=== PATIENT | male | born 1990 | race Caucasian/White ===

== ENCOUNTER 2017-02-09 12:17 | Emergency (ER) | payer BC ==
[2017-02-09 13:08] VITALS: BP 177/84
--- NOTE | 2017-02-09 13:26 | UC ---
khushbu Arias Timothy, scribed for Virgilio Ag MD on 02/09/17 at 1319 . Back Pain HPI - History of Current Complaint Stated Complaint: BACK PAIN Time Seen by Provider: 02/09/17 13:17 Hx Obtained From: Patient Onset/Duration: Sudden Onset, Lasting Hours, Still Present Timing: Constant Severity Initially: Moderate Severity Currently: Moderate Pain Intensity: 8 Pain Scale Used: 0-10 Numeric Back Pain: Is Discrete @ - right low back Character: Spasmodic Aggravating: Movement Alleviating: Rest Associated Signs And Symptoms: Negative: Numbness, Tingling - Allergies/Home Medications Allergies/Adverse Reactions: Allergies Allergy/AdvReac Type Severity Reaction Status Date / Time Shellfish Allergy Allergy Severe Nausea And Verified 02/09/17 13:07 Vomiting Sulfamethoxazole Allergy Severe Hives Verified 02/09/17 13:07 w/Trimethoprim [From Bactrim] Amoxicillin Allergy Intermediate Hives Verified 02/09/17 13:07 Bacitracin Allergy Intermediate Hives Verified 02/09/17 13:07 Home Medications: Home Medications Cyanocobalamin [B12] 1,000 mcg PO 02/09/17 [History] PMH/Surg Hx/FS Hx/Imm Hx Cardiovascular History: Hypertension GI/ History: Kidney Stones Psychological History: Anxiety, Depression Other History Of: Negative For: HIV, Hepatitis B, Hepatitis C, Anticoagulant Therapy - Surgical History Surgical History: Yes Surgery Procedure, Year, and Place: Appendectomy within past 6 years [facility], Right foot surgery as a teenager - Family History Known Family History: Positive: None Negative: Cardiac Disease, Hypertension, Diabetes - Social History Alcohol Use: Occasionally Substance Use Type: None Smoking Status (MU): Light Every Day Tobacco Smoker Type: Cigarettes Amount Used/How Often: 5-6 CIG/DAY Length of Time of Smoking/Using Tobacco: 8 YEARS Have You Smoked in the Last Year: Yes Review of Systems Constitutional: Negative Skin: Negative Eyes: Negative ENT: Negative Respiratory: Negative Cardiovascular: Negative Gastrointestinal: Negative Genitourinary: Negative Motor: Negative Neurovascular: Negative Musculoskeletal: Other: - right low back pain with spasm Neurological: Negative Psychological: Negative All Other Systems Reviewed And Are Negative: Yes Physical Exam Triage Information Reviewed: Yes Vital Signs: Initial Vital Signs Temp 98.3 F 02/09/17 13:04 Pulse 108 02/09/17 13:04 Resp 20 02/09/17 13:04 BP 177/84 02/09/17 13:04 Pulse Ox 100 02/09/17 13:04 Vital Signs Reviewed: Yes - Additional Comments The patient is well-nourished in no acute distress and in no acute pain. The skin is warm and dry and skin color reflects adequate perfusion. HEENT: The head is normocephalic and atraumatic. The pupils are equal and reactive. The conjunctivae are clear and without drainage. Nares are patent and without drainage. Mouth reveals moist mucous membranes and the throat is without erythema and exudate. The external ears are intact. The ear canals are patent and without drainage. The tympanic membranes are intact. Neck is supple with full range of motion and non-tender. There are no carotid bruits. There is no neck vein distension. Respiratory: Chest is non-tender. Lungs are clear to auscultation and breath sounds are symmetrical and equal. Cardiovascular: Heart is regular rate and rhythm. There is no murmur or rub auscultated. There is no peripheral edema and pulses are symmetrical and equal. Abdomen: The abdomen is soft and non-tender. There are normal bowel sounds heard in all four quadrants and there is no organomegaly palpated. Musculoskeletal: Extremities are non-tender with full range of motion. There is good capillary refill. There is no peripheral edema or calf tenderness elicited. There is tenderness in the lumbar spine, particularly on the paravertebral right. No lumbosacral tenderness, There is pain with side- bending to the right or left. Neurological: Patient is alert and oriented to person, place and time. The patient has symmetrical motor strength in all four extremities. Cranial nerves are grossly intact. Deep tendon reflexes are symmetrical and equal in all four extremities. Psychiatric: The patient has an appropriate affect and does not exhibit any anxiety or depression. Back Pain Course/Dx - Course Course Of Treatment: Frankie Falk is a 27 yo male presenting to [facility] with 8/ 10 right side low back pain and spasm S/P moving this weekend. Pt medication list reviewed this visit. After clinical examination, he will be discharged home with acute lumbar sprain/strain with appropriate instructions and follow up. - Differential Dx/Diagnosis Differential Diagnosis/HQI/PQRI: Herniated Disc, Strain, Sprain Provider Diagnoses: acute lumbar strain/sprain Discharge - Discharge Plan Condition: Stable Disposition: HOME Prescriptions: Cyclobenzaprine TAB* [Flexeril 10 MG TAB*] 10 mg PO TID PRN #30 tab PRN Reason: muscle spasm Hydrocodone-Acetaminophen [Anatone 5-325 mg] 1 tab PO QID PRN #20 tab MDD 4 PRN Reason: pain Patient Education Materials: Low Back Strain (ED), Lower Back Exercises (ED) Referrals: Dawn Ramos MD [Primary Care Provider] - 2 Days Additional Instructions: Please follow up with your primary care physician regarding your visit to urgent care today. Return to urgent care or the emergency department with any new or recurring symptoms. The documentation as recorded by the khushbu graff Timothy accurately reflects the service I personally performed and the decisions made by , Virgilio Ag MD.
== END 2017-02-09 13:27 | disposition home or self-care (01) ==
LOC: UCEAST 12:17
DX: Z72.0 Tobacco use (principal); S33.5XXA Sprain of ligaments of lumbar spine, initial encounter
CPT/HCPCS: 99212; G0463

== ENCOUNTER 2017-11-11 20:08 | Observation (INO) | payer BC ==
[2017-11-11] MEDS ORDERED: Ketorolac INJ* 30 MG/ML 1 ML VIAL IV PUSH ONE (21:30)
[2017-11-11] MEDS ORDERED: Morphine VIAL* 4 MG/ML VIAL (1 ml vial) IV ONE ×3 (21:32→22:33)
[2017-11-11 21:37] LABS: ABS Basophils 0.1 10^3/ul (0-0.2); ABS Eosinophils 0.2 10^3/ul (0-0.6); ABS Lymphocytes 1.9 10^3/ul (1.0-4.8); ABS Neutrophils 7.6 10^3/ul (1.5-7.7); ABS Nucleated RBC 0 10^3/ul; Eosinophil % 1.4 % (0-6); Hematocrit 46 % (42-52); Hemoglobin 16.3 g/dl (14.0-18.0); Lymphocyte % 17.9 % (25-47); Mean Corpuscular HGB Conc 35 g/dl (31-36); Mean Corpuscular Hemoglobin 31 pg (27-31); Mean Corpuscular Volume 87 fL (80-94); Mean Platelet Volume 7.9 um3 (7.4-10.4); Nucleated Red Blood Cells % 0; Platelet Count 233 10^3/ul (150-450); Red Blood Count 5.31 10^6/ul (4.0-5.4); Red Cell Distribution Width 13 % (10.5-15); White Blood Count 10.7 10^3/ul (3.5-10.8)
[2017-11-11 21:47] LABS: EGFR Non-African American 64.1 (>60)
[2017-11-11] MEDS ORDERED: NS 0.9% 1000 ML* 1,000 ML IV ONE (22:33)
--- NOTE | 2017-11-11 23:02 | ED ---
GI/ HPI - HPI Summary HPI Summary: 27 year male presents with severe right lower quadrant pain past couple hours. He has history of uric acid stones and Dr monzon is his urologist. His pain is in his RLQ. He denies any chest pain or SOB. He jen any flank pain. He denies any testicular pain. Denies any penile discharge. Denies any fevers. He denies any dysuria. He denies any nausea vomiting. He had normal bowel movement for past 2 days. no diarrhea or constipation. He has had his appendix removed 10 years ago. Has history depression. He has not taking anything for his symptoms. He is in 10 out of 10 pain. - History of Current Complaint Chief Complaint: EDAbdPain Time Seen by Provider: 11/11/17 21:09 Stated Complaint: ABD PAIN Pain Intensity: 9 - Allergy/Home Medications Allergies/Adverse Reactions: Allergies Allergy/AdvReac Type Severity Reaction Status Date / Time amoxicillin Allergy Hives Verified 11/11/17 20:15 bacitracin Allergy Unknown Verified 11/11/17 20:15 Reaction Details shellfish derived Allergy Nausea And Verified 11/11/17 20:15 Vomiting sulfamethoxazole Allergy Hives Verified 11/11/17 20:15 [From Bactrim] trimethoprim [From Bactrim] Allergy Hives Verified 11/11/17 20:15 Home Medications: Home Medications Atomoxetine (NF) [Strattera (NF)] 40 mg PO DAILY 11/11/17 [History Confirmed 08/30] Cholecalciferol TAB* [Vitamin D TAB*] 1,000 unit PO DAILY 11/11/17 [History Confirmed 11/11/17] Cyanocobalamin TAB* [Vitamin B12 TAB*] 1,000 mcg PO DAILY 11/11/17 [History Confirmed 11/11/17] Dextroamphetamine/Amphetamine [Adderall Xr 10 mg Capsule] 50 mg PO DAILY [History Confirmed 11/11/17] Sertraline* [Zoloft*] 200 mg PO DAILY 11/11/17 [History Confirmed 11/11/17] PMH/Surg Hx/FS Hx/Imm Hx Endocrine/Hematology History: Denies: Hx Anticoagulant Therapy, Hx Diabetes, Hx Thyroid Disease Cardiovascular History: Reports: Hx Hypertension - HE states that he has slightly elevated blood pressure, but not on Rx Denies: Hx Congestive Heart Failure, Hx Deep Vein Thrombosis, Hx Myocardial Infarction, Hx Pacemaker/ICD Respiratory History: Denies: Hx Asthma, Hx Chronic Obstructive Pulmonary Disease (COPD), Hx Lung Cancer, Hx Pneumonia, Hx Pulmonary Embolism GI History: Denies: Hx Gall Bladder Disease, Hx Gastrointestinal Bleed, Hx Ulcer, Hx Urosepsis History: Reports: Hx Kidney Stones - He thinks he has one in each kidney. Denies: Hx Renal Disease Neurological History: Denies: Hx Dementia, Hx Migraine, Hx Seizures, Hx Transient Ischemic Attacks (TIA) Psychiatric History: Reports: Hx Anxiety, Hx Depression - Surgical History Surgery Procedure, Year, and Place: Appendectomy within past 6 years [facility], Right foot surgery as a teenager Infectious Disease History: No Infectious Disease History: Denies: Hx Clostridium Difficile, Hx Hepatitis, Hx Human Immunodeficiency Virus (HIV), Hx of Known/Suspected MRSA, Hx Shingles, Hx Tuberculosis, Hx Known/ Suspected VRE, Hx Known/Suspected VRSA, History Other Infectious Disease, Traveled Outside the [place] in Last 30 Days - Family History Known Family History: Positive: None Negative: Cardiac Disease, Hypertension, Diabetes - Social History Alcohol Use: Occasionally Substance Use Type: Reports: None Smoking Status (MU): Light Every Day Tobacco Smoker Type: Cigarettes Amount Used/How Often: 5-6 CIG/DAY Length of Time of Smoking/Using Tobacco: 8 YEARS Have You Smoked in the Last Year: Yes Review of Systems Negative: Fever Negative: Chest Pain Negative: Shortness Of Breath Positive: Abdominal Pain. Negative: Vomiting, Diarrhea, Nausea Negative: flank pain All Other Systems Reviewed And Are Negative: Yes Physical Exam Triage Information Reviewed: Yes Vital Signs On Initial Exam: Initial Vitals Temp Pulse Resp BP Pulse Ox 96.7 F 93 24 149/104 99 11/11/17 20:12 11/11/17 20:12 11/11/17 20:12 11/11/17 20:12 11/11/17 20:12 Vital Signs Reviewed: Yes Appearance: Positive: Pain Distress Skin: Positive: Warm, Dry Head/Face: Positive: Normal Head/Face Inspection Eyes: Positive: Normal, Conjunctiva Clear ENT: Positive: Pharynx normal Respiratory/Lung Sounds: Positive: Clear to Auscultation, Breath Sounds Present Cardiovascular: Positive: Normal, RRR Abdomen Description: Positive: Soft, Other: - tenderness RLQ. Negative: CVA Tenderness (R), CVA Tenderness (L) Bowel Sounds: Positive: Present Musculoskeletal: Positive: Normal Neurological: Positive: Normal Psychiatric: Positive: Normal Diagnostics - Vital Signs Vital Signs Temp Pulse Resp BP Pulse Ox 11/11/17 22:50 18 11/11/17 21:36 22 11/11/17 20:12 96.7 F 93 24 149/104 99 - Laboratory Lab Results: Lab Results 11/11/17 11/11/17 Range/Units 21:21 21:21 WBC 10.7 (3.5-10.8) 10^3/ul RBC 5.31 (4.0-5.4) 10^6/ul Hgb 16.3 (14.0-18.0) g/dl Hct 46 (42-52) % MCV 87 (80-94) fL MCH 31 (27-31) pg MCHC 35 (31-36) g/dl RDW 13 (10.5-15) % Plt Count 233 (150-450) 10^3/ul MPV 7.9 (7.4-10.4) um3 Neut % (Auto) 70.6 (38-83) % Lymph % (Auto) 17.9 L (25-47) % [place] % (Auto) 9.2 H (0-7) % Eos % (Auto) 1.4 (0-6) % Baso % (Auto) 0.9 (0-2) % Absolute Neuts (auto) 7.6 (1.5-7.7) 10^3/ul Absolute Lymphs (auto) 1.9 (1.0-4.8) 10^3/ul Absolute Monos (auto) 1.0 H (0-0.8) 10^3/ul Absolute Eos (auto) 0.2 (0-0.6) 10^3/ul Absolute Basos (auto) 0.1 (0-0.2) 10^3/ul Absolute Nucleated RBC 0 10^3/ul Nucleated RBC % 0 Sodium 142 (139-145) mmol/L Potassium 4.1 (3.5-5.0) mmol/L Chloride 104 (101-111) mmol/L Carbon Dioxide 28 (22-32) mmol/L Anion Gap 10 (2-11) mmol/L BUN 14 (6-24) mg/dL Creatinine 1.32 H (0.67-1.17) mg/dL Est GFR ( Amer) 82.5 (>60) Est GFR (Non-Af Amer) 64.1 (>60) BUN/Creatinine Ratio 10.6 (8-20) Glucose 89 (70-100) mg/dL Calcium 10.1 (8.6-10.3) mg/dL Total Bilirubin 0.70 (0.2-1.0) mg/dL AST 44 H (13-39) U/L ALT 27 (7-52) U/L Alkaline Phosphatase 59 (34-104) U/L C-Reactive Protein 3.71 (< 5.00) mg/L Total Protein 7.7 (6.4-8.9) g/dL Albumin 4.7 (3.2-5.2) g/dL Globulin 3.0 (2-4) g/dL Albumin/Globulin Ratio 1.6 (1-3) Lipase 47 (11.0-82.0) U/L Result Diagrams: 11/11/17 21:21 11/11/17 21:21 Lab Statement: Any lab studies that have been ordered have been reviewed, and results considered in the medical decision making process. - CT abd CT Interpretation: Positive (See Comments) - Right perinephritic edema, mild right hydronephrosis and dilation of right extrarenal pelvis due to 1 cm obstructing calculi at the uteropelvic junction. Additional small bilateral anterior intrarenal noted. CT Interpretation Completed By: Radiologist - Ultrasound No standard instances Ultrasound Interpretation: No Acute Changes Ultrasound Interpretation Completed By: Radiologist Re-Evaluation - Re-Evaluation First Eval Re-Evaluation Time: 23:25 Change: Improved Comment: pain is still 8 out of 10 GIGU Course/Dx - Course Course Of Treatment: 27 year male presents with severe right lower quadrant pain past couple hours. He has history of uric acid stones and Dr monzon is his urologist. His pain is in his RLQ. He denies any chest pain. Denies any penile discharge. Denies any fevers. He denies any dysuria. He denies any nausea vomiting. He had normal bowel movement for past 2 days. He has had his appendix removed 10 years ago. Has history depression. He has not taking anything for her symptoms. He is in 10 out of 10 pain. On exam lungs CVA tenderness right. Patient is writhing in pain. Tenderness right lower quadrant. wbc cell count normal. Creatinine slightly elevated. CT shows a 1 cm at uteropelvic junction. spoke with dr glover said if cant get pain under control admit and will stent in morning. discussed with dr cisse who agrees to admit. - Diagnoses Differential Diagnoses - Male: Pyelonephritis, Testicular Torsion, Ureteral Calculi Provider Diagnoses: Urethral stone Discharge - Sign-Out/Discharge Documenting (check all that apply): Discharge/Admit/Transfer - Discharge Plan Condition: Good Disposition: ADMITTED TO [facility] Referrals: Dawn Ramos MD [Primary Care Provider] - - Billing Disposition and Condition Condition: GOOD Disposition: [facility] [place]
[2017-11-11] MEDS ORDERED: HYDROmorphone INJ* 2 MG/ML CARPUJECT SYRINGE IV SLOW PU ONE (23:14)
[2017-11-12] MEDS ORDERED: NS 0.9% 1000 ML* 1,000 ML IV ONE (00:37)
[2017-11-12] MEDS ORDERED: Acetaminophen TAB* 325 MG PO PRN (00:37)
[2017-11-12] MEDS ORDERED: Ondansetron INJ* 2 MG/ML VIAL IV PRN (00:37)
[2017-11-12] MEDS ORDERED: HYDROmorphone INJ* 2 MG/ML CARPUJECT SYRINGE IV SLOW PU PRN (00:37)
[2017-11-12 02:05] LABS: Urine Appearance Clear; Urine Blood 3+ (Negative); Urine Color Yellow; Urine Ketones Negative (Negative); Urine Protein 2+(100 mg/dL) (Negative); Urine Specific Gravity 1.021 (1.010-1.030); Urine Urobilinogen Negative (Negative)
[2017-11-12] MEDS: NS 0.9% 1000 ML* 1,000 ML IV SCH ×2 (02:17→10:27)
[2017-11-12 05:36] LABS: ABS Basophils 0 10^3/ul (0-0.2); ABS Eosinophils 0.1 10^3/ul (0-0.6); ABS Neutrophils 5.6 10^3/ul (1.5-7.7); ABS Nucleated RBC 0 10^3/ul; Eosinophil % 1.2 % (0-6); Hematocrit 40 % (42-52); Hemoglobin 14.1 g/dl (14.0-18.0); Lymphocyte % 22.4 % (25-47); Mean Corpuscular HGB Conc 35 g/dl (31-36); Mean Corpuscular Hemoglobin 30 pg (27-31); Mean Corpuscular Volume 86 fL (80-94); Mean Platelet Volume 7.5 um3 (7.4-10.4); Nucleated Red Blood Cells % 0.1; Platelet Count 175 10^3/ul (150-450); Red Blood Count 4.65 10^6/ul (4.0-5.4); Red Cell Distribution Width 13 % (10.5-15); White Blood Count 8.7 10^3/ul (3.5-10.8)
[2017-11-12 05:44] LABS: INR 1.02 (0.77-1.02)
[2017-11-12] MEDS ORDERED: Ketorolac INJ* 30 MG/ML 1 ML VIAL IV PUSH ONE (05:45)
[2017-11-12 05:57] LABS: EGFR Non-African American 65.8 (>60)
[2017-11-12] MEDS ORDERED: Heparin VIAL(*) 5000 UNITS/ML VIAL (FIVE THOUSAND) SUBCUT SCH (06:00)
[2017-11-12] MEDS ORDERED: HYDROmorphone INJ* 2 MG/ML CARPUJECT SYRINGE ONE (06:53)
[2017-11-12] MEDS ORDERED: HYDROmorphone INJ* 2 MG/ML CARPUJECT SYRINGE IV ONE (07:00)
--- NOTE | 2017-11-12 07:09 | HP ---
CC: Dr. Ramos; Dr. De La Torre * HISTORY AND PHYSICAL: DATE OF ADMISSION: 11/12/17 PRIMARY CARE PROVIDER: Dr. Ramos. ATTENDING PHYSICIAN WHILE IN THE HOSPITAL: Maren Carvajal DO * (report dictated by Arie Luna NP). CHIEF COMPLAINT: Abdominal pain. HISTORY OF PRESENT ILLNESS: Mr. Falk is a 27-year-old male patient who has a history of ADHD, depression, and kidney stones; however, he has never had issues with passing one. He has a history of uric stones that he follows with Dr. Miller for. He comes into our ER today stating that he this evening started having some right lower quadrant pain mostly in the front. He stated that the pain just got progressively worse. He was at a meeting, the pain just was unbearable, he came into the ER. He denied any fevers or chills. No nausea, no vomiting. He denied having any dysuria recently. He says that he just could not get comfortable. It was a stabbing, sharp, unrelenting pain that was doubling him over. It was agonizing. He came into our ER, ultimately was evaluated and found to have nephrolithiasis in the right kidney and the right ureter. He denied again having any testicular pain. He denied having any chest pain or shortness of breath. No recent URI symptoms. No fevers or chills. He said prior to this he had been feeling well. He was evaluated, was noted to have a 1 cm stone at the UPJ and we were asked to evaluate for admission. PAST MEDICAL HISTORY: Significant for: 1. ADHD. 2. Depression. 3. Nephrolithiasis. PAST SURGICAL HISTORY: 1. He has had a cystoscopy x2. 2. Appendectomy. MEDICATIONS: Home medications include: 1. B12, 1000 mcg p.o. daily. 2. Vitamin D 1000 units p.o. daily. 3. Zoloft 200 mg daily. 4. Adderall 50 mg p.o. daily. 5. Strattera 40 mg p.o. daily. ALLERGIES TO MEDICATIONS: Include AMOXICILLIN, BACITRACIN, SHELLFISH, and BACTRIM. FAMILY HISTORY: His mother is healthy, father has a history of hypertension and diabetes. SOCIAL HISTORY: He is a half a pack a day smoker for about 10 years. He does not drink alcohol. Surrogate decision maker is his mother. REVIEW OF SYSTEMS: There is no documented fever. Denies having any significant weight change. No double vision, no ear discharge. No rhinorrhea. No sore throat. No thyroid enlargement. Denies having any chest pain. There is no orthopnea, no nocturnal dyspnea. There was no abdominal pain. No nausea , no vomiting, no dysuria, no frequency, no seizure, no loss of consciousness, no pruritus, and no skin ulcerations. Review of 14 systems completed and all others negative. PHYSICAL EXAMINATION GENERAL: At this time, Mr. Falk is a 27-year-old male patient, he is sitting in the ED stretcher, he does not appear to be in any acute distress. VITAL SIGNS: Blood pressure 148/89, pulse 91, respirations 16, O2 sat 97%, and temperature 98.3. HEENT: Head atraumatic and normocephalic. Eyes: EOMs intact. Sclerae anicteric and not pale. Throat: Oral mucosa appears to be moist. No oropharyngeal erythema. NECK: Supple. LUNGS: Clear to auscultation bilaterally. No wheezes, rales, or rhonchi. HEART: Sounds S1 and S2. Regular rate and rhythm. No murmurs, rubs, or gallops. ABDOMEN: Soft, flat, nontender. No CVA tenderness. Bowel sounds are present. EXTREMITIES: Pulses are 2+ throughout. Moving all 4 extremities with 5/5 strength. NEUROLOGIC: The patient is awake, alert, and oriented x3. Tongue midline. Staff Scientist are equal. No gross focal deficits. SKIN: Grossly intact. LABORATORY DATA: WBC 10.7, RBC of 5.21, hemoglobin 16.2, hematocrit 46, platelet count 233,000. Sodium of 142, potassium 4.1, chloride 104, bicarb 28, BUN 14, creatinine 1.32, glucose 89, calcium 10.1, total bili 0.7, AST 44, ALT 27, alk phos 59, CRP 3.7, albumin 4.7, lipase normal. He did have a testicular ultrasound. Findings: The testicles appear to be normal without testicular mass. There is a 2 mm and 3 mm anterior left scrotal cyst, likely tunica albuginea cyst. appropriate arterial and/or venous waveforms are noted on both testes making a torsion unlikely. He did have a CT of the abdomen and pelvis. Findings: Liver, gallbladder, pancreas, and adrenal glands are grossly unremarkable. Borderline mild splenomegaly. Right perinephritic edema, mild right hydrodilation of the right extrarenal pelvis due to 1 mm obstructing calculus at the UPJ. Additional small bilateral intrarenal calculi. No AAA. No evidence of diverticulitis, small bowel obstruction, free fluid or free air. Old medical records were reviewed. ASSESSMENT AND PLAN: Mr. Falk is a 27-year-old male patient coming into the ED today with complaints of abdominal pain. He was found to have a 1 mm stone at the right UPJ. He will be admitted under observation status for: 1. Nephrolithiasis with UPJ stone and mild hydronephrosis with associated obstructive uropathy. At this point, Dr. De La Torre has been contacted by the ED. Plan will be for ureteral stenting tomorrow. He will be n.p.o. starting now. I have ordered normal saline at 125 an hour. I am trying to get a urine on the patient. 2. Depression. Continue meds as prescribed. 3. Attention deficit hyperactivity disorder. Continue his current medical regimen. 4. DVT prophylaxis. SCDs have been ordered. 5. Code status. Full code. 6. Fluids, electrolytes, and nutrition. He is n.p.o. pending the OR today. TIME SPENT: Time spent on admission 60 minutes, greater than half the time spent [id number] with the patient obtaining my history and physical, other half of the time spent going over the plan of care with the patient, implementing the plan of care. I discussed the plan of care with my attending, Dr. Carvajal, she is in agreement. ARIE LUNA, JONELLE [id number]/CPS #: [id number] [place]
--- NOTE | 2017-11-12 07:28 | RAD ---
INDICATION: Right lower quadrant pain. COMPARISON: There are no prior studies available for comparison. TECHNIQUE: Multiple real-time images of the testicles were obtained including color Doppler images and Doppler tracings. FINDINGS: The testicles are normal in size, shape and echogenicity. The right testicle measured 3.8 x 1.7 x 3.2 cm and the left testicle measured 4.4 x 1.8 x 3.4 cm. No intratesticular mass is seen. There are small cysts present peripherally within the left testicle measuring 3 x 1 x 3 and 2 x 1 x 2 mm each most consistent with tunica albuginea cysts. There is symmetric vascular flow within both testicles. The epididymides appear to be within normal limits. IMPRESSION: 1. NO EVIDENCE FOR TORSION OR EPIDIDYMITIS. 2. FINDINGS MOST CONSISTENT WITH SMALL LEFT TUNICA ALBUGINEA CYSTS.
--- NOTE | 2017-11-12 07:39 | RAD ---
INDICATION: Right lower quadrant pain, history of appendectomy. COMPARISON: Comparison is made with a prior CT of the abdomen and pelvis from January 11, 2016. TECHNIQUE: A CT scan of the abdomen and pelvis was performed without intravenous or oral contrast. Contiguous axial sections were obtained from the lung bases through the symphysis pubis. Images were reconstructed in the coronal and sagittal planes. FINDINGS: The lung bases are clear. No pleural effusion is present. The liver is normal in size without significant focal abnormality on this noncontrast study. No calcified gallstones are seen. The pancreas appears to be within normal limits. The spleen is borderline enlarged spanning 13 cm in craniocaudad dimension. The adrenal glands appear to be within normal limits. There are several small bilateral renal calculi. In addition there is a large calculus in the right renal pelvis measuring 1.1 x 0.8 cm in size. This is currently not lodged at the ureteropelvic junction There is dilatation of the renal pelvis and calyces consistent with mild to moderate hydronephrosis. There is mild perinephric stranding and stranding around the right renal pelvis and proximal ureter. No additional ureteral or bladder calculi are seen. The aorta is normal in caliber without significant calcific plaque. No significant enlarged retroperitoneal lymph nodes are seen. There are surgical sutures adjacent to the cecum. There is a small periumbilical hernia containing fat. No free intraperitoneal air or fluid is seen. No significant focal osseous abnormality is seen. IMPRESSION: 1. MILD TO MODERATE RIGHT HYDRONEPHROSIS WHICH APPEARS TO BE SECONDARY TO AN INTERMITTENT OBSTRUCTING CALCULUS PRESENT IN THE RENAL PELVIS MEASURING UP TO 1.1 CM IN SIZE. 2. THERE ARE ADDITIONAL SMALL BILATERAL RENAL CALCULI. 3. BORDERLINE SPLENOMEGALY. 4. STATUS POST APPENDECTOMY.
[2017-11-12] MEDS ORDERED: CMCS:Atomoxetine (NF) 40 MG CAP PO SCH (09:00)
[2017-11-12] MEDS ORDERED: Amphetamine/Dextroamph ER(NF) 10 MG CAP.ER PO SCH (09:00)
[2017-11-12] MEDS ORDERED: Sertraline* 100 MG TAB PO SCH (09:00)
[2017-11-12] MEDS: HYDROmorphone INJ* 2 MG/ML CARPUJECT SYRINGE IV SLOW PU PRN ×2 (11:39→15:40)
--- NOTE | 2017-11-12 13:52 | RAD ---
Indication: Urolithiasis. Comparison: November 11, 2017 CT. Technique: Supine view of the abdomen. Report: Bowel anastomosis staple line at the RIGHT abdomen. Unremarkable bowel gas pattern. Moderate stool in the colon without significant rectal distension. 1.1 cm maximum dimension stone at the level of the RIGHT renal pelvis. 0.3 cm calyceal stone at the level of the lower pole of the LEFT kidney . Smaller bilateral stones on CT are not conspicuous on radiographs likely on a technical basis. Pelvic phleboliths and probable RIGHT seminal vesicle calcification based on correlation with CT. Unremarkable soft tissue contours. IMPRESSION: Bilateral urolithiasis as described.
[2017-11-12] MEDS ORDERED: Iohexol 180 (CONTRAST) 10 ML SDV IV ONE (16:13)
[2017-11-12] MEDS ORDERED: oxyCODONE/Acetamin 5/325 MG* TAB PO PRN (16:18)
[2017-11-12] MEDS ORDERED: Naloxone* 0.4 MG/ML 1 ML VIAL IV PRN (16:18)
[2017-11-12] MEDS ORDERED: HYDROcodone/ACETAMIN 5-325 MG* 1 TAB PO PRN (16:18)
[2017-11-12] MEDS ORDERED: fentaNYL* 50 MCG/ML 2 ML VIAL (100 MCG VIAL) IV PRN (16:18)
[2017-11-12] MEDS ORDERED: DiMENhydriNATE IV* 50 MG/ML VIAL IV PUSH PRN (16:18)
[2017-11-12] MEDS ORDERED: fentaNYL* 50 MCG/ML 2 ML VIAL (100 MCG VIAL) ONE (16:33)
[2017-11-12] MEDS ORDERED: Propofol* 10 MG/ML 20 ML BTL IV PUSH ONE (16:33)
[2017-11-12] MEDS ORDERED: Lidocaine 2% PF * 5 ML VIAL ONE (16:33)
[2017-11-12] MEDS ORDERED: Midazolam* 1 MG/ML 2 ML VIAL (2 MG) ONE (16:33)
[2017-11-12] MEDS ORDERED: Gentamicin ADULT (*) 40 MG/ML VIAL ONE (17:15)
[2017-11-12] MEDS ORDERED: Levofloxacin 750 MG IVPREMIX(* 750 MG/150 ML BAG ONE (17:31)
--- NOTE | 2017-11-12 17:47 | RAD ---
INDICATION: Right renal calculus COMPARISONS: CT dated November 11, 2017 TECHNIQUE: Fluoroscopy was provided for a retrograde pyelogram and stent placement. Total fluoroscopy time is: 12 seconds FINDINGS: Spot images demonstrate contrast within the right renal collecting system. A right ureteral stent is noted. IMPRESSION: FLUOROSCOPY WAS PROVIDED FOR A RETROGRADE PYELOGRAM AND STENT PLACEMENT CPT II Codes: G9500
[2017-11-12 19:00] VITALS: BP 144/53
--- NOTE | 2017-11-13 10:35 | OP ---
CC: Dr. Dawn Ramos; Dr. Maren Carvajal * DATE OF OPERATION: 11/12/17 - ROOM #341 DATE OF : 86 SURGEON: Vinicio Miller MD ANESTHESIOLOGIST: Lisbet Quinteros MD. ANESTHESIA: General. PRE-OP DIAGNOSES: 1. Right hydronephrosis. 2. Large obstructing calculus, right ureteropelvic junction. POST-OP DIAGNOSES: 1. Right hydronephrosis. 2. Large obstructing calculus, right ureteropelvic junction. OPERATIVE PROCEDURE: Cystoscopy, right retrograde pyelogram, right ureteral calculus manipulation, and right stent insertion. INDICATIONS: Frankie Falk is a 27-year-old young man with history of renal calculi. He had presented to the emergency room with right flank pain and was noted to have approximately 1- to 1.1-cm calculus obstructing at the right ureteropelvic junction. He is being brought in for urgent right stent insertion to be followed in the near future by shock wave lithotripsy. COMPLICATIONS: None. STENT USED: 6-Bangladeshi stent, right ureter. POSTOPERATIVE CONDITION: Stable. OPERATIVE FINDINGS: High-grade obstruction secondary to large calculus at right ureteropelvic junction. DESCRIPTION OF PROCEDURE: After induction of general anesthesia, the patient was placed in dorsal lithotomy position. Sequential compression devices were in place and functioning. Initial cystoscopy revealed a normal-appearing urethra. The bladder was examined and appeared unremarkable. Clear urine was seen effluxing from the left orifice. I did not visualize any efflux from the right orifice suggesting a high-grade obstruction. Guidewire was introduced into the right ureter. Retrograde pyelogram revealed a large radiopaque calculus at the area of the ureteropelvic junction on fluoroscopy and initially there was no progression of contrast beyond the calculus. A guidewire and an open-ended catheter were advanced to the level of the calculus and it was carefully manipulated proximally. Once this was done, the open-ended could be advanced into the right renal pelvis. Retrograde pyelogram revealed fullness of the right collecting system and there was significant drainage of hydronephrotic drip from the right kidney. A 6-Bangladeshi stent was introduced and positioned under fluoroscopy with good proximal and distal positioning obtained. The patient tolerated the procedure satisfactorily and was transferred back to the recovery area in stable condition. At the end of the procedure, fluoroscopy revealed the calculus to be located in the right renal pelvis and he will be scheduled for shock wave lithotripsy in the near future. [id number]/[facility] #: [id number] BARRON
--- NOTE | 2017-11-14 11:50 | DS ---
CC: Dr. Ramos; Dr. Vinicio Miller MD * DISCHARGE SUMMARY: DATE OF ADMISSION: 11/12/17 DATE OF DISCHARGE: 11/12/17 PRIMARY CARE PROVIDER: Dr. Ramos. MY ATTENDING WHILE IN THE HOSPITAL: Nicolas Vides MD * (DICTATED BY KAILYN APARICIO) CONSULTING UROLOGIST: Dr. Vinicio Miller. PRIMARY DISCHARGE DIAGNOSIS: Nephrolithiasis secondary to status post stenting. SECONDARY DISCHARGE DIAGNOSES: 1. Attention deficit hyperactivity disorder. 2. Depression. STUDIES DONE WHILE IN THE HOSPITAL: Abdomen and pelvis CT from 11/11/17 read as [id number] right hydronephrosis, which appears to be secondary to intermittent obstructing calculus present in the renal pelvis, measuring up to 1.1 cm in size. There are additional small bilateral renal calculi, borderline splenomegaly, status post appendectomy. Testicular ultrasound read as no evidence for torsion of the epididymis or epididymitis. Findings most consistent with small left tunica albuginea cysts. Abdomen x-ray from 11/12/17 , read as urolithiasis as described above. Retrograde pyelogram shows right ureteral stent. MEDICATIONS: At discharge: 1. Vitamin B12 1000 mcg p.o. q.a.m. 2. Vitamin D 1000 units p.o. q.a.m. 3. Sertraline 200 mg p.o. q.a.m. 4. Adderall 15 mg p.o. q.a.m. 5. Strattera 40 mg p.o. q.a.m. 6. Tylenol 650 mg p.o. q.4 hours as needed for pain. HOSPITAL COURSE: This is a brief summary of the patient's presentation. For more detail, please see the history and physical from Arie Luna NP, on 09/27. In brief, the patient is a 27-year-old male with past medical history significant for the above, who presents with pain in his right lower quadrant anteriorly. It got progressively worse, became unbearable without any associated symptoms or recent illnesses. The patient never had issues of passing a kidney stone before. The patient was admitted to the hospital for pain control. The patient had a creatinine of 1.32 on admission, likely representing an obstruction. The patient also had an AST of 44. Urinalysis showed 3+ blood, 2+ protein, trace leukocyte esterase, 1+ white blood cells, and positive rbc's. On repeat, showed a creatinine of 1.29. The patient had no issues throughout the day. His pain is well controlled with Dilaudid and he was taken in the evening for ureteral stenting with Dr. Vinicio Miller, which was performed without complication relieving the obstruction on his ureter. The patient was stable in the postanesthesia care unit and was stable for discharge home. The patient was instructed to follow up for lithotripsy on Thursday as discussed with Dr. Miller and to avoid any blood thinners until then. PHYSICAL EXAMINATION ON THE DAY OF DISCHARGE: General: The patient is a 27- year- old male who appears stated age, sitting comfortably in bed, in no acute distress. Vital signs at the time of discharge: Temperature 97.3, pulse rate 85 , respiratory rate 15, oxygen saturation 99% on room air, blood pressure 144/ 99. HEENT: Head normocephalic, atraumatic. Sclerae are anicteric. No conjunctival injection. Nasal mucosa moist. Oral mucosa moist. No pharyngeal erythema, discharge or exudate. Neck: Supple, nontender. No lymphadenopathy. No carotid bruit auscultated. Cardiac: Regular rate and rhythm. No clicks, murmurs, gallops or rubs. Pulses are 2+ in bilateral dorsal pedis, posterior tibialis, and radial areas. Respiratory: Clear to auscultation bilaterally. No wheezes, rales or rhonchi. Good air exchange bilaterally. Abdomen: Soft. Tenderness to palpation in the lower quadrant. No guarding or abnormalities. No hepatosplenomegaly. Genitourinary: No suprapubic or CVA tenderness. Psychiatric: Pleasant and cooperative. DISCHARGE PLAN: The patient will be discharged to home. The patient will follow up on 11/16/17, for lithotripsy as discussed with Dr. Miller. The patient will avoid blood thinners to that point. He can take Tylenol for pain control. The patient is having no pain at this time. I have discussed with the patient that if these are uric acid stones as believed, now that he is having more issues with them, that it would be indicated to discuss prophylactic therapy with his urologist. The patient should return to hospital for alarming symptoms such as severe fevers, chest pain, shortness of breath, inability to pass urine. The patient should engage in activity as tolerated and have a regular unrestricted diet. TIME SPENT: Approximately 60 minutes were spent on the discharge, 30 of which were spent [id number] with the patient obtaining history and physical and discussing treatment plan. KAILYN APARICIO [id number]/[facility] #: [id number] [place]
== END 2017-11-12 19:17 | disposition home or self-care (01) ==
LOC: ED 20:08 → SSU 11-12 00:35
PROVIDERS: ADMIT Hospitalist; ATTEND Student in an Organized Health Care Education/Training Program
PROC: BT1DZZZ Fluoroscopy of Right Kidney, Ureter and Bladder (ICD-10-PCS; 2017-11-12)
PROC: 0WHR8YZ Insertion of Other Device into Genitourinary Tract, Via Natural or Artificial Opening Endoscopic (ICD-10-PCS; 2017-11-12)
PROC: 0T768DZ Dilation of Right Ureter with Intraluminal Device, Via Natural or Artificial Opening Endoscopic (ICD-10-PCS; principal; 2017-11-12 15:00)
DX: N13.2 Hydronephrosis with renal and ureteral calculous obstruction (principal); F32.9 Major depressive disorder, single episode, unspecified; F90.9 Attention-deficit hyperactivity disorder, unspecified type; F17.210 Nicotine dependence, cigarettes, uncomplicated; Z88.2 Allergy status to sulfonamides; Z88.8 Allergy status to other drugs, medicaments and biological substances; Z79.899 Other long term (current) drug therapy; I10 Essential (primary) hypertension
CPT/HCPCS: 36415; 74018; 74176; 74420; 76870; 80048; 80053; 81003; 81015; 83690; 85025; 85610; 85730; 86140; 87086; 96374; 96375; 96376; 99285; 99406; A9270-GY; C1876; G0378; J1170; J1580; J1885; J2250; J2270; J2704; J3010

== ENCOUNTER 2017-11-14 02:39 | Emergency (ER) | payer BC ==
[2017-11-14] MEDS ORDERED: Metoclopramide IV* 5 MG/ML 2 ML VIAL IV ONE (03:12)
[2017-11-14] MEDS ORDERED: HYDROmorphone INJ* 2 MG/ML CARPUJECT SYRINGE IV SLOW PU ONE (03:12)
[2017-11-14] MEDS ORDERED: NS 0.9% 1000 ML* 1,000 ML IV ONE (03:12)
[2017-11-14 03:33] LABS: ABS Basophils 0.1 10^3/ul (0-0.2); ABS Eosinophils 0.2 10^3/ul (0-0.6); ABS Lymphocytes 1.9 10^3/ul (1.0-4.8); ABS Monocytes 0.8 10^3/ul (0-0.8); ABS Neutrophils 4.2 10^3/ul (1.5-7.7); ABS Nucleated RBC 0 10^3/ul; Eosinophil % 3.1 % (0-6); Hematocrit 39 % (42-52); Hemoglobin 13.5 g/dl (14.0-18.0); Lymphocyte % 26.6 % (25-47); Mean Corpuscular HGB Conc 35 g/dl (31-36); Mean Corpuscular Hemoglobin 30 pg (27-31); Mean Corpuscular Volume 87 fL (80-94); Mean Platelet Volume 7.5 um3 (7.4-10.4); Nucleated Red Blood Cells % 0.1; Platelet Count 177 10^3/ul (150-450); Red Blood Count 4.48 10^6/ul (4.0-5.4); Red Cell Distribution Width 13 % (10.5-15); White Blood Count 7.3 10^3/ul (3.5-10.8)
[2017-11-14 03:50] LABS: EGFR Non-African American 78.3 (>60)
[2017-11-14 05:27] LABS: Urine Appearance Cloudy; Urine Blood 2+ (Negative); Urine Ketones Negative (Negative); Urine Protein 2+(100 mg/dL) (Negative); Urine Specific Gravity 1.012 (1.010-1.030); Urine Urobilinogen Negative (Negative)
[2017-11-14] MEDS ORDERED: Levofloxacin TAB* 500 MG PO ONE (05:39)
[2017-11-14 06:04] VITALS: BP 120/59
[2017-11-14 06:10] LABS: Urine Color Red
--- NOTE | 2017-11-14 06:19 | ED ---
Mert Arias Nikita, scribed for Karine Del Valle MD on 11/14/17 at 0333 . Abdominal Pain/Male - HPI Summary HPI Summary: This patient is a 27 year old M presenting to ED with a chief complaint of RLQ pain since 1 hour ago. The patient had a stent put in on 11/12/17 for kidney stone. The patient rates the pain 10/10 in severity. Symptoms aggravated by nothing. Symptoms alleviated slightly by Percocet at 0212. Patient reports hematuria. Patient denies testicular pain and fever. - History of Current Complaint Chief Complaint: EDAbdPain Stated Complaint: ABD PAIN Time Seen by Provider: 11/14/17 03:06 Hx Obtained From: Patient Onset/Duration: Sudden Onset, Lasting Hours, Still Present Timing: Constant, Lasting Hours Severity Initially: Severe Severity Currently: Severe Pain Intensity: 10 Pain Scale Used: 0-10 Numeric Location: Discrete At: RLQ Aggravating Factor(s): Nothing Alleviating Factor(s): Other: - alleviated slightly by 2 percocet Associated Signs And Symptoms: Positive: Other - Patient reports hematuria. Patient denies testicular pain and fever. - Allergies/Home Medications Allergies/Adverse Reactions: Allergies Allergy/AdvReac Type Severity Reaction Status Date / Time amoxicillin Allergy Hives Verified 11/14/17 03:45 bacitracin Allergy Unknown Verified 11/14/17 03:45 Reaction Details shellfish derived Allergy Nausea And Verified 11/14/17 03:45 Vomiting sulfamethoxazole Allergy Hives Verified 11/14/17 03:45 [From Bactrim] trimethoprim [From Bactrim] Allergy Hives Verified 11/14/17 03:45 Home Medications: Home Medications Simethicone [Gas Relief] 160 mg PO BID PRN 11/14/17 [History Confirmed 11/14/17] PMH/Surg Hx/FS Hx/Imm Hx Endocrine/Hematology History: Denies: Hx Anticoagulant Therapy, Hx Diabetes, Hx Thyroid Disease Cardiovascular History: Reports: Hx Hypertension - HE states that he has slightly elevated blood pressure, but not on Rx Denies: Hx Congestive Heart Failure, Hx Deep Vein Thrombosis, Hx Myocardial Infarction, Hx Pacemaker/ICD Respiratory History: Denies: Hx Asthma, Hx Chronic Obstructive Pulmonary Disease (COPD), Hx Lung Cancer, Hx Pneumonia, Hx Pulmonary Embolism GI History: Denies: Hx Gall Bladder Disease, Hx Gastrointestinal Bleed, Hx Ulcer, Hx Urosepsis History: Reports: Hx Kidney Stones - He thinks he has one in each kidney. Denies: Hx Renal Disease Sensory History: Reports: Hx Contacts or Glasses Denies: Hx Hearing Aid Opthamlomology History: Reports: Hx Contacts or Glasses Neurological History: Denies: Hx Dementia, Hx Migraine, Hx Seizures, Hx Transient Ischemic Attacks (TIA) Psychiatric History: Reports: Hx Anxiety, Hx Depression, Other Psychiatric Issues/Disorders - Dysthymia - Surgical History Surgery Procedure, Year, and Place: Appendectomy within past 6 years [facility], Right foot surgery as a teenager/renal stent placement Hx Anesthesia Reactions: No Infectious Disease History: No Infectious Disease History: Denies: Hx Clostridium Difficile, Hx Hepatitis, Hx Human Immunodeficiency Virus (HIV), Hx of Known/Suspected MRSA, Hx Shingles, Hx Tuberculosis, Hx Known/ Suspected VRE, Hx Known/Suspected VRSA, History Other Infectious Disease, Traveled Outside the [place] in Last 30 Days - Family History Known Family History: Negative: Cardiac Disease, Hypertension, Diabetes - Social History Alcohol Use: Occasionally Substance Use Type: Reports: None Substance Use Comment - Amount & Last Used: 8 years ago--marijuana Smoking Status (MU): Light Every Day Tobacco Smoker Type: Cigarettes Amount Used/How Often: 5-6 CIG/DAY Length of Time of Smoking/Using Tobacco: 8 YEARS Have You Smoked in the Last Year: Yes Review of Systems Negative: Fever Positive: hematuria, other - denies testicular pain All Other Systems Reviewed And Are Negative: Yes Physical Exam - Summary Physical Exam Summary: VITAL SIGNS: Reviewed. GENERAL: ~Patient is a well-developed and nourished MALE who is lying comfortable in the stretcher. Patient is not in any acute respiratory distress. HEAD AND FACE: No signs of trauma. No ecchymosis, hematomas or skull depressions. No sinus tenderness. EYES: PERRLA, EOMI x 2, No injected conjunctiva, no nystagmus. EARS: Hearing grossly intact. Ear canals and tympanic membranes are within normal limits. MOUTH: Oropharynx within normal limits. NECK: Supple, trachea is midline, no adenopathy, no JVD, no carotid bruit, no c- spine tenderness, neck with full ROM. CHEST: Symmetric, no tenderness at palpation LUNGS: Clear to auscultation bilaterally. No wheezing or crackles. CVS: Regular rate and rhythm, S1 and S2 present, no murmurs or gallops appreciated. ABDOMEN: Soft, non-tender. No signs of distention. No rebound, no guarding, and no masses palpated. Bowel sounds are normal. EXTREMITIES: FROM in all major joints, no edema, no cyanosis or clubbing. NEURO: Alert and oriented x 3. No acute neurological deficits. Speech is normal and follows commands. SKIN: Dry and warm Triage Information Reviewed: Yes Vital Signs On Initial Exam: Initial Vitals Temp Pulse Resp BP Pulse Ox 97.6 F 71 16 170/104 99 11/14/17 02:41 11/14/17 02:41 11/14/17 02:41 11/14/17 02:41 11/14/17 02:41 Vital Signs Reviewed: Yes Diagnostics - Vital Signs Vital Signs Temp Pulse Resp BP Pulse Ox 11/14/17 02:41 97.6 F 71 16 170/104 99 - Laboratory Result Diagrams: 11/14/17 03:27 11/14/17 03:27 Lab Statement: Any lab studies that have been ordered have been reviewed, and results considered in the medical decision making process. - CT CT abd/pel CT Interpretation Completed By: Radiologist - Mild persistent hydronephrosis is diminished from prior study following nephroureteral stent placement. ED physician has reviewed this imaging report. Re-Evaluation - Re-Evaluation First Eval Re-Evaluation Time: 05:41 Change: Improved Comment: The patient is feeling better. Discussed results and discharge plan with the patient. Abdominal Pain Fem Course/Dx - Course Assessment/Plan: This patient is a 27 year old M presenting to ED with a chief complaint of RLQ pain since [address] abd/pel reveals mild persistent hydronephrosis is diminished from prior study following nephroureteral stent placement. In the ED course, the patient was given Dilaudid, Reglan, Levaquin, and fluids. The patient will be discharged home. The patient is agreeable with this plan. - Diagnoses Differential Diagnosis/HQI/PQRI: Renal Colic, Urinary Tract Infection Provider Diagnoses: UTI (urinary tract infection), Renal colic Discharge - Sign-Out/Discharge Documenting (check all that apply): Discharge/Admit/Transfer - Discharge Plan Condition: Stable Disposition: HOME Prescriptions: Ibuprofen TAB* [Motrin TAB* 800 MG] 800 mg PO Q6H PRN #30 tab PRN Reason: Pain Levofloxacin TAB* [Levaquin TAB*] 500 mg PO DAILY #7 tab oxyCODONE/Acetamin 5/325 MG* [Percocet 5/325 TAB*] 1 tab PO Q6H PRN #14 tab MDD 4 PRN Reason: Pain Patient Education Materials: Urinary Tract Infection in Men (ED), Renal Colic ( ED) Referrals: Dawn Ramos MD [Primary Care Provider] - 11/16/17 (Follow up with your PCP on Thursday.) Additional Instructions: RETURN TO EMERGENCY DEPARTMENT FOR ANY NEW OR WORSENING SYMPTOMS. The documentation as recorded by the Mert graff Nikita accurately reflects the service I personally performed and the decisions made by , Karine Del Valle MD.
--- NOTE | 2017-11-14 08:41 | RAD ---
INDICATION: Abdominal pain. COMPARISON: Comparison is made with a prior CT of the abdomen and pelvis from November 11, 2017. TECHNIQUE: A CT scan of the abdomen and pelvis was performed without intravenous or oral contrast. Contiguous axial sections were obtained from the lung bases through the symphysis pubis. Images were reconstructed in the coronal and sagittal planes. FINDINGS: There is mild dependent bilateral lower lobe subsegmental atelectasis. No pleural effusion is present. The liver is normal in size without significant focal abnormality on this noncontrast study. The spleen is borderline enlarged. No calcific gallstones are seen. The pancreas appears to be within normal limits. The adrenal glands are normal in size. There is a right ureteral stent catheter extending from the renal pelvis to the urinary bladder. There is a small bubble of air within the collecting system. There is mild right hydronephrosis which has improved from the prior exam. There is stranding and fluid tracking around the right renal pelvis and proximal ureter. There is a calculus in the renal pelvis measuring approximately 1 cm in size. There are few additional bilateral renal calculi present. No bladder calculi or bladder wall thickening is present. The aorta is normal in caliber without significant calcific plaque. No significant enlarged retroperitoneal lymph nodes are seen. The stomach, small and large bowel appear nondistended. The patient is status post appendectomy. There is a small periumbilical hernia containing fat. No free intraperitoneal air or fluid is seen. No significant focal osseous abnormality is seen. IMPRESSION: 1. STATUS POST RIGHT URETERAL STENT PLACEMENT. THERE IS MILD RIGHT HYDRONEPHROSIS WHICH HAS DECREASED FROM THE PRIOR EXAM. THERE IS INTERSTITIAL STRANDING AND FLUID TRACKING AROUND THE RIGHT RENAL PELVIS AND PROXIMAL URETER. 2. THERE IS A CALCULUS WITHIN THE RIGHT RENAL PELVIS AND SMALL BILATERAL RENAL CALCULI WHICH APPEAR UNCHANGED. 3. BORDERLINE SPLENOMEGALY. 4. STATUS POST APPENDECTOMY.
== END 2017-11-14 06:17 | disposition home or self-care (01) ==
LOC: ED 02:39
DX: N39.0 Urinary tract infection, site not specified (principal); N23 Unspecified renal colic; F17.210 Nicotine dependence, cigarettes, uncomplicated; I10 Essential (primary) hypertension; Z88.0 Allergy status to penicillin; Z88.2 Allergy status to sulfonamides
CPT/HCPCS: 36415; 74176; 80053; 81003; 81015; 83735; 85025; 86140; 87086; 96360; 96374; 96375; 96376; 99284; J1170; J2765

== ENCOUNTER 2017-11-16 14:03 | Day surgery (SDC) | payer BC ==
[~2017-11-16 14:03] MED LIST: Buffered Lidocaine 0.9% SYRIN* 5 ML/SYR SYRINGE INTRADERM ONE
[2017-11-16] MEDS ORDERED: Gentamicin ADULT (*) 180 MG in NS 0.9% 100 ML* 100 ML IVPB ONE (15:30)
[2017-11-16] MEDS ORDERED: Midazolam* 1 MG/ML 2 ML VIAL (2 MG) ONE (15:38)
[2017-11-16] MEDS ORDERED: fentaNYL* 50 MCG/ML 2 ML VIAL (100 MCG VIAL) ONE (15:38)
--- NOTE | 2017-11-16 16:14 | RAD ---
INDICATION: Patient is status post shockwave lithotripsy COMPARISON: Most recent KUB is dated November 12, 2017 TECHNIQUE: 2 views the abdomen were obtained. FINDINGS: There is been interval placement of a right-sided ureteral stent. The 1 cm hyper hyperdense focus seen on the prior KUB appears to be unchanged in position now overlying the proximal loop of a ureteral stent. Again seen is elongate density measuring 3 mm overlying the lower pole collecting system of the left kidney. IMPRESSION: INTERVAL PLACEMENT OF AN ANATOMICALLY ALIGNED RIGHT URETERAL STENT.
[2017-11-16] MEDS ORDERED: Propofol* 10 MG/ML 20 ML BTL IV PUSH ONE (16:34)
[2017-11-16] MEDS ORDERED: Dexamethasone IV* 4 MG/ML 1 ML (4 MG) ONE (16:34)
[2017-11-16] MEDS ORDERED: DiMENhydriNATE IV* 50 MG/ML VIAL ONE (16:34)
[2017-11-16] MEDS ORDERED: Acetaminophen TAB* 325 MG PO PRN (16:46)
[2017-11-16] MEDS ORDERED: PROCHLORPERAZINE INJ 5 MG/ML 2 ML VIAL IV PRN (16:46)
[2017-11-16] MEDS ORDERED: Naloxone* 0.4 MG/ML 1 ML VIAL IV PRN (16:46)
[2017-11-16] MEDS ORDERED: fentaNYL* 50 MCG/ML 2 ML VIAL (100 MCG VIAL) IV PRN (16:46)
[2017-11-16] MEDS ORDERED: Levalbuterol 0.63MG/3ML NEB* UNIT OF USE INH PRN (16:46)
[2017-11-16] MEDS ORDERED: Ondansetron INJ* 2 MG/ML VIAL IV PRN (16:46)
[2017-11-16] MEDS ORDERED: Hetastarch 6% in NS* 500 ML IV ONE (16:58)
[2017-11-16] MEDS ORDERED: EPHEDrine (Pressors)* 50 MG/ML VIAL ONE (17:13)
[2017-11-16 18:25] VITALS: BP 142/81
--- NOTE | 2017-11-16 22:10 | RAD ---
INDICATION: Status post right ureteral stent placement COMPARISON: Same day KUB acquired at 1456 hours TECHNIQUE: Single AP view of the abdomen was obtained at 1905 hours FINDINGS: The right ureteral stent is anatomically aligned. A stable 3 mm length calcification is noted overlying the lower pole of the left kidney. IMPRESSION: ANATOMIC ALIGNMENT OF RIGHT URETERAL STENT.
--- NOTE | 2017-11-17 11:18 | OP ---
CC: Dr. Dawn Ramos * DATE OF OPERATION: 11/16/17 - [facility] DATE OF : 86 SURGEON: Dr. Miller. ANESTHESIOLOGIST: Dr. Dixon. ANESTHESIA: General. PRE-OP DIAGNOSIS: Right renal calculus. POST-OP DIAGNOSIS: Right renal calculus. OPERATIVE PROCEDURE: Shockwave lithotripsy, right renal calculus. INDICATIONS: Frankie Falk is a 27-year-old gentleman, who had undergone urgent right stent insertion for a large obstructing calculus in the right proximal ureter. The stent was manipulated into the right kidney at the time of stent insertion and he is now being brought in for shockwave lithotripsy. COMPLICATIONS: None. POSTOPERATIVE CONDITION: Stable. DESCRIPTION OF PROCEDURE: After induction of general anesthesia, the patient was placed on lithotripsy table in supine position. The calculus which was located within the proximal coil of the right stent was visualized using fluoroscopy. Shockwave lithotripsy was commenced at a rate of 90 shocks per minute. After the initial 300 shocks, there was a brief pause in lithotripsy for several minutes in an effort to minimize any potential trauma to the kidney. Lithotripsy was then resumed and periodic imaging revealed good localization. A total of 2400 shocks were administered. The plan is to obtain a postoperative x-ray and then later ultrasound to determine the degree of fragmentation and to see whether he requires any additional procedures to completely fragment the calculus. The patient tolerated the procedure satisfactorily and was transferred back to the recovery area in stable condition. [id number]/[facility] #: [id number] MTDD
== END 2017-11-16 19:00 | disposition home or self-care (01) ==
LOC: OR 14:03
PROVIDERS: ATTEND Urology
DX: N20.0 Calculus of kidney (principal); F17.210 Nicotine dependence, cigarettes, uncomplicated; R03.0 Elevated blood-pressure reading, without diagnosis of hypertension; F41.8 Other specified anxiety disorders; F90.9 Attention-deficit hyperactivity disorder, unspecified type; F32.9 Major depressive disorder, single episode, unspecified
CPT/HCPCS: 74018; J1100; J1240; J1580; J2250; J2704; J3010

== ENCOUNTER 2018-05-17 12:54 | Day surgery (SDC) | payer BC ==
--- NOTE | 2018-05-11 19:13 | HP ---
CC: Dr. Dawn Ramos * ADMITTING HISTORY AND PHYSICAL: DATE OF ADMISSION: 05/17/18 ADMITTING DIAGNOSES: 1. Left renal calculus. 2. Gross hematuria. PLANNED PROCEDURE: Shock-wave lithotripsy, left renal calculus, possible left stent insertion. SURGEON: Dr. Miller. HISTORY OF PRESENT ILLNESS: Frankie Falk is a 28-year-old gentleman with a history of recurrent bilateral renal calculi. He had previously undergone successful treatment of a right renal calculus with complete resolution noted on subsequent imaging. He recently was evaluated for gross hematuria again and was noted now to have a 8-mm calculus in the left renal pelvis. PAST MEDICAL HISTORY: Significant for: 1. Renal calculi. 2. ADHD. 3. Depression. MEDICATIONS: On admission: 1. Sertraline 200 mg a day. 2. Strattera 40 mg a day. 3. Adderall 60 mg a day. ALLERGIES: PENICILLIN and SULFA (hives with both). REVIEW OF SYSTEMS: He is otherwise in excellent health. There is no history of diabetes mellitus or any other major systemic illness. PHYSICAL EXAMINATION GENERAL: Reveals a pleasant, comfortable-appearing, young gentleman. VITAL SIGNS: Blood pressure is 150/86, pulse 86 per minute and regular, oxygen saturation 97% on room air, temperature 97.1. LUNGS: Clear bilaterally. CARDIOVASCULAR: Regular rate and rhythm. S1, S2. ABDOMEN: Soft with very mild left flank tenderness. IMPRESSION: A 28-year-old gentleman with intermittent gross hematuria secondary to an 8-mm calculus in the left renal pelvis. PLAN: Planned procedure is shock-wave lithotripsy, left renal calculus, possible left stent insertion. [id number]/[facility] #: [id number] [facility]
[~2018-05-17 12:54] MED LIST changes: +Famotidine IV* 10 MG/ML 2 ML (20 mg) IV ONE
[2018-05-17] MEDS ORDERED: Famotidine IV* 10 MG/ML 2 ML (20 mg) ONE (12:56)
[2018-05-17] MEDS ORDERED: Levofloxacin 500 MG IVPREMIX(* 500 MG/100 ML BAG IVPB ONE (12:56)
[2018-05-17] MEDS ORDERED: fentaNYL* 50 MCG/ML 2 ML VIAL (100 MCG VIAL) ONE (14:58)
[2018-05-17] MEDS ORDERED: Lidocaine 2% PF * 5 ML VIAL ONE (14:58)
[2018-05-17] MEDS ORDERED: Ondansetron INJ* 2 MG/ML VIAL ONE (14:58)
[2018-05-17] MEDS ORDERED: Propofol* 10 MG/ML 20 ML BTL IV PUSH ONE (14:58)
[2018-05-17] MEDS ORDERED: Midazolam* 1 MG/ML 5 ML VIAL (5 MG) ONE (14:59)
[2018-05-17] MEDS ORDERED: Iohexol 180 (CONTRAST) 10 ML SDV IV ONE (15:27)
[2018-05-17] MEDS ORDERED: HYDROmorphone INJ* 0.5 MG/0.5 ML SYRINGE ONE (15:28)
[2018-05-17] MEDS ORDERED: EPHEDrine (Pressors)* 50 MG/ML VIAL ONE (16:00)
[2018-05-17] MEDS ORDERED: Phenylephrine INJ* 10 MG/ML 1 ML VIAL (10 MG) ONE (16:07)
[2018-05-17] MEDS ORDERED: Ondansetron INJ* 2 MG/ML VIAL IV PRN (16:09)
[2018-05-17] MEDS ORDERED: oxyCODONE/Acetamin 5/325 MG* TAB PO PRN (16:09)
[2018-05-17] MEDS ORDERED: Naloxone* 0.4 MG/ML 1 ML VIAL IV PRN (16:09)
[2018-05-17] MEDS ORDERED: fentaNYL* 50 MCG/ML 2 ML VIAL (100 MCG VIAL) IV PRN (16:09)
[2018-05-17] MEDS ORDERED: Furosemide IV* 10 MG/ML 2 ML VIAL (20 MG) ONE (16:16)
[2018-05-17 17:10] VITALS: BP 154/79
--- NOTE | 2018-05-18 12:53 | OP ---
CC: Dr. Dawn Ramos * DATE OF OPERATION: 05/17/18 - [facility] DATE OF : 86 SURGEON: Vinicio Miller MD. ANESTHESIOLOGIST: Dr. Trejo. ANESTHESIA: General. PRE-OP DIAGNOSIS: Left renal calculus. POST-OP DIAGNOSIS: Left renal calculus. OPERATIVE PROCEDURE: Shockwave lithotripsy of left renal calculus. COMPLICATIONS: None. POSTOPERATIVE CONDITION: Stable. INDICATIONS: Frankie Falk is a 28-year-old gentleman who has had intermittent gross hematuria secondary to an 8-mm calculus in the left renal pelvis. DESCRIPTION OF PROCEDURE: After induction of general anesthesia, the patient was placed in the lithotripsy table in the supine position. The calculus was identified using fluoroscopy and shockwave lithotripsy was commenced at a rate of 90 shocks/minute. After the initial 300 shocks, there was a brief pause in lithotripsy for few minutes in an effort to minimize any potential trauma to the kidney. Lithotripsy was then resumed and periodic imaging revealed good localization and fragmentation. A total of 2400 shocks were administered. The patient tolerated the procedure satisfactorily and was transferred back to the recovery area in stable condition. [id number]/[facility] #: [id number] MTDD
== END 2018-05-17 18:04 | disposition home or self-care (01) ==
LOC: OR 12:54
PROVIDERS: ATTEND Urology
DX: N20.0 Calculus of kidney (principal); R31.0 Gross hematuria; Z87.440 Personal history of urinary (tract) infections; F90.9 Attention-deficit hyperactivity disorder, unspecified type; F32.9 Major depressive disorder, single episode, unspecified; Z72.0 Tobacco use
CPT/HCPCS: 74018; J1170; J1940; J1956; J2250; J2405; J2704; J3010

== ENCOUNTER 2019-05-25 21:39 | Emergency (ER) | payer SELFPAY ==
--- NOTE | 2019-05-25 21:52 | UC ---
Hand/Wrist HPI - HPI Summary HPI Summary: Patient is a 29yo male presenting with L thumb pain after crushing it in an air powered clamp yesterday at 2pm. Patient states he came in because his mom is a nurse and believes he may have compartment syndrome because it has become more swollen today. He also notes bruising. Notes pain has improved since yesterday and describes it as a throbbing. Denies decreased ROM. Denies numbness and tingling. Patient has been taking ibuprofen which has helped the pain some. - History Of Current Complaint Stated Complaint: THUMB INJURY Hx Obtained From: Patient Severity Initially: Severe Severity Currently: Moderate Character Of Pain: Throbbing - Allergies/Home Medications Allergies/Adverse Reactions: Allergies Allergy/AdvReac Type Severity Reaction Status Date / Time amoxicillin Allergy Hives Verified 05/25/19 21:50 bacitracin Allergy Unknown Verified 05/25/19 21:50 Reaction Details shellfish derived Allergy Nausea And Verified 05/25/19 21:50 Vomiting sulfamethoxazole Allergy Hives Verified 05/25/19 21:50 [From Bactrim] trimethoprim [From Bactrim] Allergy Hives Verified 05/25/19 21:50 PMH/Surg Hx/FS Hx/Imm Hx Other History Of: Negative For: HIV, Hepatitis B, Hepatitis C, Anticoagulant Therapy - Surgical History Surgical History: Yes Surgery Procedure, Year, and Place: Appendectomy within past 6 years [facility] [place]. , Right foot surgery as a teenager/. [place] [facility] [place] - Family History Known Family History: Positive: None Negative: Cardiac Disease, Hypertension, Diabetes - Social History Occupation: Employed Full-time Alcohol Use: Weekly Alcohol Amount: 1 per week Substance Use Type: None Substance Use Comment - Amount & Last Used: marijuana very limited Smoking Status (MU): Light Every Day Tobacco Smoker Type: Cigarettes Amount Used/How Often: 2-5 cigs per day for 12 yrs Length of Time of Smoking/Using Tobacco: 8 YEARS Have You Smoked in the Last Year: Yes - Immunization History Most Recent Influenza Vaccination: none Most Recent Pneumonia Vaccination: none Review of Systems All Other Systems Reviewed And Are Negative: No Constitutional: Positive: Negative Skin: Positive: Bruising - L thumb Respiratory: Positive: Negative Cardiovascular: Positive: Negative Musculoskeletal: Positive: Arthralgia, Edema. Negative: Decreased ROM Neurological: Negative: Weakness, Paresthesia, Numbness Physical Exam Triage Information Reviewed: Yes Appearance: Well-Appearing, No Pain Distress, Well-Nourished Vital Signs: Vital Signs (72 hours) 05/25/19 21:52 Temperature 97.9 F Pulse Rate 92 Respiratory 16 Rate Blood Pressure 151/90 (mmHg) O2 Sat by Pulse 99 Oximetry Eyes: Positive: Conjunctiva Clear ENT: Positive: Hearing grossly normal Neck: Positive: Supple Respiratory: Positive: No respiratory distress Cardiovascular: Positive: Pulses Normal - strong radial pulses Musculoskeletal: Positive: Strength Intact, ROM Intact, Edema @ - L distal thumb , Other: - tenderness to palpation of distal phalanx of L thumb excluding the PIP joint Neurological Exam: Other - sensation grossly intact Neurological: Positive: Alert Psychological: Positive: Age Appropriate Behavior Skin: Positive: Other - ecchymosis noted of entire distal phalanx of L thumb Diagnostics - Radiology L thumb Radiology Interpretation Completed By: ED Physician Summary of Radiographic Findings: tuft fracture of distal phalanx of first digit Hand/Wrist Course/Dx - Course Course Of Treatment: Discussed positive fracture with patient. He received thumb splint and directions to follow up as soon as possible with ortho. Instructed to keep splint on until then. Patient voiced understanding and agreed with plan. - Differential Dx/Diagnosis Provider Diagnosis: Fracture of distal phalanx of thumb Discharge ED - Sign-Out/Discharge Documenting (check all that apply): Patient Departure All imaging exams completed and their final reports reviewed: No - Discharge Plan Condition: Stable Disposition: HOME Patient Education Materials: Finger Fracture (ED) Referrals: Ulices Packer MD [Medical Doctor] - Soren Hernandez MD [Medical Doctor] - Additional Instructions: As discussed, the xrays of the thumb did show a fracture. Keep the thumb splinted and immobilized as much as possible until you are able to follow up. You may continue use over the counter pain medications as directed for relief of pain. Follow up with the referral listed below as soon as possible for further evaluation. Go to the emergency room if pain worsens or the thumb becomes cold and numb. - Billing Disposition and Condition Condition: STABLE Disposition: Home
[2019-05-25 21:57] VITALS: BP 151/90
== END 2019-05-25 22:26 | disposition home or self-care (01) ==
LOC: UCEAST 21:39
DX: S62.525A Nondisplaced fracture of distal phalanx of left thumb, initial encounter for closed fracture (principal); Z91.013 Allergy to seafood; Z88.0 Allergy status to penicillin; Z88.2 Allergy status to sulfonamides; Z88.1 Allergy status to other antibiotic agents; F17.210 Nicotine dependence, cigarettes, uncomplicated; W31.89XA Contact with other specified machinery, initial encounter; Y92.9 Unspecified place or not applicable
CPT/HCPCS: 99212; G0463

== ENCOUNTER 2019-07-26 19:04 | Emergency (ER) | payer MEDICAID ==
[2019-07-26 20:10] LABS: ABS Eosinophils 0.1 10^3/ul (0-0.6); ABS Lymphocytes 1.5 10^3/ul (1.0-4.8); ABS Monocytes 0.5 10^3/ul (0-0.8); ABS Neutrophils 4.5 10^3/ul (1.5-7.7); Eosinophil % 1.2 %; Hematocrit 44 % (42-52); Hemoglobin 15.7 g/dL (14.0-18.0); Lymphocyte % 22.8 %; Mean Corpuscular HGB Conc 36 g/dL (31-36); Mean Corpuscular Hemoglobin 31 pg (27-31); Mean Corpuscular Volume 86 fL (80-94); Mean Platelet Volume 7.2 fL (7.4-10.4); Nucleated Red Blood Cells % 0.1; Platelet Count 200 10^3/uL (150-450); Red Blood Count 5.12 10^6 /uL (4.18-5.48); Red Cell Distribution Width 14 % (10-15); White Blood Count 6.7 10^3/uL (3.5-10.8)
[2019-07-26 20:26] LABS: Albumin 4.7 g/dL (3.2-5.2); Albumin/Globulin Ratio 1.8 (1-3); BUN/Creatinine Ratio 10.5 (8-20); C Reactive Protein 2.4 mg/L (<8.01); Calcium 9.6 mg/dL (8.6-10.3); EGFR African American 99.7 (>60); EGFR Non-African American 82.4 (>60); Globulin 2.6 g/dL (2-4); Total Protein 7.3 g/dL (6.4-8.9)
[2019-07-26 21:48] LABS: Urine Appearance Turbid; Urine Bilirubin Negative (Negative); Urine Blood 3+ (Negative); Urine Color Amber; Urine Glucose Negative (Negative); Urine Ketones Negative (Negative); Urine Nitrite Negative (Negative); Urine Protein 1+(30 mg/dL) (Negative); Urine Specific Gravity 1.021 (1.010-1.030); Urine Urobilinogen Negative (Negative)
[2019-07-26 21:55] LABS: Urine Bacteria Absent (Absent); Urine Red Blood Cell 2+(6-10/hpf) (Absent); Urine White Blood Cell Trace(0-5/hpf) (Absent)
[2019-07-26] MEDS ORDERED: Ketorolac INJ* 30 MG/ML 1 ML VIAL IV PUSH ONE (22:05)
[2019-07-26] MEDS ORDERED: Ondansetron INJ* 2 MG/ML VIAL IV ONE (22:07)
[2019-07-26] MEDS ORDERED: NS 0.9% 1000 ML** 1,000 ML IV ONE (22:07)
[2019-07-26] MEDS ORDERED: Morphine 10 MG/ML VIAL (1 ml) IV ONE (22:07)
--- NOTE | 2019-07-26 22:37 | ED ---
GI/ HPI - HPI Summary HPI Summary: 29-year-old male presents with left-sided flank pain today. States he had pain in the left lower quadrant. He states is having blood in his urine. He has a history of kidney stones states that it feels the same. He took 2 Percocet with minimal relief. Denies any nausea or vomiting. No fevers. No dysuria. No chest pain or shortness of breath. No previous abdominal surgeries. Has had stents placed for kidney stones. His urologist is Dr. Miller. - History of Current Complaint Chief Complaint: EDAbdPain Time Seen by Provider: 07/26/19 21:54 Stated Complaint: ABD PAIN/BLOOD IN URINE PER PT Pain Intensity: 8 - Additional Pertinent History Primary Care Physician: [id number] - Allergy/Home Medications Allergies/Adverse Reactions: Allergies Allergy/AdvReac Type Severity Reaction Status Date / Time amoxicillin Allergy Hives Verified 05/25/19 21:50 bacitracin Allergy Unknown Verified 05/25/19 21:50 Reaction Details shellfish derived Allergy Nausea And Verified 05/25/19 21:50 Vomiting sulfamethoxazole Allergy Hives Verified 05/25/19 21:50 [From Bactrim] trimethoprim [From Bactrim] Allergy Hives Verified 05/25/19 21:50 Home Medications: Home Medications Atomoxetine (NF) [Strattera (NF)] 40 mg PO QAM 07/26/19 [History Confirmed 07/26] Dextroamphetamine ER (Nf) 30 mg PO DAILY 07/26/19 [History Confirmed 07/26/19] PMH/Surg Hx/FS Hx/Imm Hx Endocrine/Hematology History: Denies: Hx Anticoagulant Therapy, Hx Diabetes, Hx Thyroid Disease Cardiovascular History: Reports: Hx Hypertension - a little high, no meds Denies: Hx Congestive Heart Failure, Hx Deep Vein Thrombosis, Hx Myocardial Infarction, Hx Pacemaker/ICD, Other Cardiovascular Problems/Disorders Respiratory History: Reports: Hx Sleep Apnea - not diagnosed Denies: Hx Asthma, Hx Chronic Obstructive Pulmonary Disease (COPD), Hx Lung Cancer, Hx Pneumonia, Hx Pulmonary Embolism GI History: Denies: Hx Gall Bladder Disease, Hx Gastrointestinal Bleed, Hx Ulcer, Hx Urosepsis History: Reports: Hx Kidney Stones - LEFT Denies: Hx Renal Disease Sensory History: Reports: Hx Contacts or Glasses - glasses Denies: Hx Hearing Aid Opthamlomology History: Reports: Hx Contacts or Glasses - glasses Neurological History: Denies: Hx Dementia, Hx Migraine, Hx Seizures, Hx Transient Ischemic Attacks (TIA) Psychiatric History: Reports: Hx Anxiety, Hx Depression, Other Psychiatric Issues/Disorders - Dysthymia - Surgical History Surgery Procedure, Year, and Place: Appendectomy within past 6 [place] [facility] [place] , Right foot surgery as a teenager/. [place] [facility] [place] Hx Anesthesia Reactions: No Infectious Disease History: No Infectious Disease History: Denies: Hx Clostridium Difficile, Hx Hepatitis, Hx Human Immunodeficiency Virus (HIV), Hx of Known/Suspected MRSA, Hx Shingles, Hx Tuberculosis, Hx Known/ Suspected VRE, Hx Known/Suspected VRSA, History Other Infectious Disease, Traveled Outside the [place] in Last 30 Days - Family History Known Family History: Positive: None Negative: Cardiac Disease, Hypertension, Diabetes - Social History Alcohol Use: Weekly Alcohol Amount: 1 per week Substance Use Type: Reports: None Substance Use Comment - Amount & Last Used: marijuana very limited Smoking Status (MU): Light Every Day Tobacco Smoker Type: Cigarettes Amount Used/How Often: 2-5 cigs per day for 12 yrs Length of Time of Smoking/Using Tobacco: 8 YEARS Have You Smoked in the Last Year: Yes Review of Systems Negative: Fever Negative: Chest Pain Negative: Shortness Of Breath Negative: Vomiting Positive: frequency, flank pain. Negative: dysuria All Other Systems Reviewed And Are Negative: Yes Physical Exam Triage Information Reviewed: Yes Vital Signs On Initial Exam: Initial Vitals Temp Pulse Resp BP Pulse Ox 97.7 F 76 18 125/96 97 07/26/19 19:05 07/26/19 19:05 07/26/19 19:05 07/26/19 19:05 07/26/19 19:05 Vital Signs Reviewed: Yes Appearance: Positive: Well-Appearing Skin: Positive: Warm, Dry Head/Face: Positive: Normal Head/Face Inspection Eyes: Positive: Normal, Conjunctiva Clear ENT: Positive: Pharynx normal Respiratory/Lung Sounds: Positive: Clear to Auscultation, Breath Sounds Present Cardiovascular: Positive: Normal, RRR Abdomen Description: Positive: Soft, CVA Tenderness (L), Other: - tenderness LLQ. Negative: CVA Tenderness (R) Bowel Sounds: Positive: Present Musculoskeletal: Positive: Normal Neurological: Positive: Normal Psychiatric: Positive: Normal Procedures - Sedation Patient Received Moderate/Deep Sedation with Procedure: No Diagnostics - Vital Signs Vital Signs Temp Pulse Resp BP Pulse Ox 07/26/19 22:26 20 07/26/19 21:11 97.9 F 83 18 150/102 95 07/26/19 19:05 97.7 F 76 18 125/96 97 - Laboratory Lab Results: Lab Results 07/26/19 07/26/19 07/26/19 Range/Units 20:00 20:00 21:15 WBC 6.7 (3.5-10.8) 10^3/uL RBC 5.12 (4.18-5.48) 10^6 /uL Hgb 15.7 (14.0-18.0) g/dL Hct 44 (42-52) % MCV 86 (80-94) fL MCH 31 (27-31) pg MCHC 36 (31-36) g/dL RDW 14 (10-15) % Plt Count 200 (150-450) 10^3/uL MPV 7.2 L (7.4-10.4) fL Neut % (Auto) 67.8 % Lymph % (Auto) 22.8 % Dawson % (Auto) 7.6 % Eos % (Auto) 1.2 % Baso % (Auto) 0.6 % Absolute Neuts (auto) 4.5 (1.5-7.7) 10^3/ul Absolute Lymphs (auto) 1.5 (1.0-4.8) 10^3/ul Absolute Monos (auto) 0.5 (0-0.8) 10^3/ul Absolute Eos (auto) 0.1 (0-0.6) 10^3/ul Absolute Basos (auto) 0.0 (0-0.2) 10^3/ul Absolute Nucleated RBC 0.0 10^3/ul Nucleated RBC % 0.1 Sodium 137 (135-145) mmol/L Potassium 4.0 (3.5-5.0) mmol/L Chloride 102 (101-111) mmol/L Carbon Dioxide 27 (22-32) mmol/L Anion Gap 8 (2-11) mmol/L BUN 11 (6-24) mg/dL Creatinine 1.05 (0.67-1.17) mg/dL Est GFR ( Amer) 99.7 (>60) Est GFR (Non-Af Amer) 82.4 (>60) BUN/Creatinine Ratio 10.5 (8-20) Glucose 96 (70-100) mg/dL Calcium 9.6 (8.6-10.3) mg/dL Total Bilirubin 1.00 (0.2-1.0) mg/dL AST 35 (13-39) U/L ALT 25 (7-52) U/L Alkaline Phosphatase 67 (34-104) U/L C-Reactive Protein 2.40 (<8.01) mg/L Total Protein 7.3 (6.4-8.9) g/dL Albumin 4.7 (3.2-5.2) g/dL Globulin 2.6 (2-4) g/dL Albumin/Globulin Ratio 1.8 (1-3) Lipase 29 (11.0-82.0) U/L Urine Color Lyla Urine Appearance Turbid Urine pH 5.0 (5-9) Ur Specific Vernon 1.021 (1.010-1.030) Urine Protein 1+(30 mg/dl) A (Negative) Urine Ketones Negative (Negative) Urine Blood 3+ A (Negative) Urine Nitrate Negative (Negative) Urine Bilirubin Negative (Negative) Urine Urobilinogen Negative (Negative) Ur Leukocyte Esterase Negative (Negative) Urine WBC (Auto) Trace(0-5/hpf) (Absent) Urine RBC (Auto) 2+(6-10/hpf) A (Absent) Urine Bacteria Absent (Absent) Urine Glucose Negative (Negative) Result Diagrams: 07/26/19 20:00 07/26/19 20:00 Lab Statement: Any lab studies that have been ordered have been reviewed, and results considered in the medical decision making process. - CT abd CT Interpretation Completed By: Radiologist Summary of CT Findings: IMPRESSION: There is a 3 mm calculus and a 2 mm calculus in the distal left ureter with mild left obstructive uropathy. There is additional nonobstructive right nephrolithiasis. Re-Evaluation - Re-Evaluation First Eval Re-Evaluation Time: 00:57 Change: Improved Comment: pain resolved GIGU Course/Dx - Course Course Of Treatment: 29-year-old male presents with left-sided flank pain today. States he had pain in the left lower quadrant. He states is having blood in his urine. He has a history of kidney stones states that it feels the same. He took 2 Percocet with minimal relief. Denies any nausea or vomiting. No fevers. No dysuria. No chest pain or shortness of breath. No previous abdominal surgeries. Has had stents placed for kidney stones. His urologist is Dr. Miller. On exam tenderness in left lower quadrant. left flank pain. urine shows hematuria. wbc normal. CT shows two urteral stone. gave morphine and Toradol and pain resolved. We will give Flomax. Discharge with pain medication. told to follow up urology. Patient understands agrees the plan. - Diagnoses Differential Diagnoses - Male: Pyelonephritis, Ureteral Calculi, Urinary Tract Infection Provider Diagnoses: Ureteral stone Discharge ED - Sign-Out/Discharge Documenting (check all that apply): Patient Departure - Discharge Plan Condition: Good Disposition: HOME Prescriptions: oxyCODONE/Acetamin 5/325 MG* [Percocet 5/325 TAB*] 2 tab PO Q6H PRN #20 tab MDD 8 PRN Reason: Pain - Severe Tamsulosin CAP* [Flomax CAP*] 0.4 mg PO DAILY #7 cap Patient Education Materials: Ureteral Stones (ED) Referrals: Dawn Ramos MD [Primary Care Provider] - Vinicio Miller MD [Medical Doctor] - Additional Instructions: Take ibuprofen every 6 hours and percocet up two tablet as needed every 6 hours Take Flomax daily starting tomorrow, first dose given in ED until stone expelled , make sure stand up slowly Follow up with urology, call office tomorrow for appointment Strain urine until collect stone Return to ED if unable to manage pain at home, develop fever, or any new or worsening symptoms - Billing Disposition and Condition Condition: GOOD Disposition: Home
[2019-07-27] MEDS ORDERED: Tamsulosin CAP* 0.4 MG PO ONE (00:55)
[2019-07-27 01:42] VITALS: BP 138/76
== END 2019-07-27 01:05 | disposition home or self-care (01) ==
LOC: ED 19:04
DX: N20.2 Calculus of kidney with calculus of ureter (principal); Z87.442 Personal history of urinary calculi; I10 Essential (primary) hypertension; Z88.2 Allergy status to sulfonamides; Z88.3 Allergy status to other anti-infective agents; Z88.0 Allergy status to penicillin; Z91.013 Allergy to seafood; F17.210 Nicotine dependence, cigarettes, uncomplicated
CPT/HCPCS: 36415; 74176; 80053; 81003; 81015; 83690; 85025; 86140; 87086; 96374; 96375; 99283; J1885; J2270; J2405